=== PATIENT | female | born 1980 | race Caucasian/White ===

== ENCOUNTER 2016-04-05 06:47 | Day surgery (SDC) | payer MEDICAID ==
[2016-04-03 13:02] LABS: BASOPHILS 0.6 % (0.0-2.0); HEMATOCRIT 45.1 % (36.0-48.0); HEMOGLOBIN 15.4 g/dL (12-16); IMMATURE GRANULOCYTES 0.1 % (0-5); LYMPHOCYTES 32.4 % (15-50); MCH 28.9 pg (26.0-34.0); MCHC 34.1 g/dL (31.0-37.0); MCV 84.8 fL (80.0-100.0); MONOCYTES 6.7 % (2-11); NEUTROPHILS 58.2 % (40-80); PLATELET COUNT 296 10x3/uL (130-400); RBC 5.32 10x6/uL (4.00-5.40); RDW 12.5 % (11.5-14.5); WBC 8.2 10x3/uL (4.8-10.8)
[~2016-04-05] VITALS: Ht 160 cm; Wt 100.7 kg
[2016-04-05 07:09] VITALS: BP 137/80; Ht 160 cm; Wt 100.7 kg
[2016-04-05 07:23] LABS: HCG URINE NEGATIVE (NEGATIVE)
--- NOTE | 2016-04-05 15:18 | NUR ---
1150-IV DISCONTINUED, CATHETER INTACT, COTTON BALL AND BANDAID APPLIED. DISCHARGE INSTRUCTIONS GIVEN, ESCORTED VIA WHEELCHAIR TO PERSONAL CAR, LEFT WITH FAMILY DRIVING.
--- NOTE | 2016-04-17 14:40 | OP ---
PATIENT NAME: REANNA ZAMORA MEDICAL RECORD: [id number] :78 LOCATION:[facility] ADMISSION DATE: SURGEON: KHLOE JOYA MD DATE OF OPERATION: 04/05/2016 PREOPERATIVE DIAGNOSIS: Menorrhagia. POSTOPERATIVE DIAGNOSIS: Menorrhagia. PROCEDURE: Hysteroscopy and D&C. ANESTHESIA: General endotracheal. INTRAVENOUS FLUIDS: Per anesthesia record. SPECIMENS: Endometrial curettings. FINDINGS: 1. Grossly normal appearing proliferative endometrium. 2. Normal external genitalia and cervix. HYSTEROSCOPIC FLUID LOSS: Approximately 200 cc of 0.9 normal saline. COMPLICATIONS: None apparent. PROCEDURE: The patient was taken to the operating room where a general anesthesia was achieved without difficulty. The patient was then prepped and draped in normal sterile fashion in the dorsal lithotomy position in the [facility]. SCDs were on and functioning normally. At this point, the bladder was drained to approximately 30 cc of clear yellow urine and a Graves speculum placed into the vagina. The anterior lip of the cervix was grasped with a single tooth tenaculum. The patient was sounded to approximately 9 cm. A minimal dilation was performed for approximately 4-5 mm and the small hysteroscope was then placed into the uterus and findings were as mentioned. Following removal of the scope, curettage was performed in all quadrants of the uterus with minimal bleeding noted. The specimen was sent to pathology. The tenaculum and speculum were then removed. The patient tolerated the procedure well and was transferred to postanesthesia recovery stable without incident. TRANSINT:[id number] Voice Confirmation ID: [id number] DOCUMENT ID: [id number] KHLOE JOYA MD at 1437 CC: [id number] DICTATION DATE: 04/14/16 0720 POLE INCISOR OPERATOR: 04/14/16 0930 [facility] 04/05/16 [place] [id number]
== END 2016-04-05 11:50 | disposition home or self-care (01) ==
LOC: D.OPS 06:47 → D.PAN 09:30 → D.OPS 09:30
PROVIDERS: Obstetrics & Gynecology
DX: N91.2 Amenorrhea, unspecified (principal); K21.9 Gastro-esophageal reflux disease without esophagitis

== ENCOUNTER → 2016-04-30 17:08 | Outpatient (CLI) | payer MEDICAID ==
[2016-04-05 07:09] VITALS: BMI 39.4
[~2016-04-30 17:08] MED LIST: HYDROCODONE-APA1 TAB PO; IBUPROFEN600 MG PO
== END | disposition home or self-care (01) ==
LOC: D.MAMMO 14:00
DX: R92.8 Other abnormal and inconclusive findings on diagnostic imaging of breast (principal)

== ENCOUNTER 2016-05-31 05:42 | Inpatient (IN) | payer MEDICAID ==
[2016-05-29 11:06] LABS: BASOPHILS 0.6 % (0.0-2.0); EOSINOPHILS 3.3 % (0-7); HEMATOCRIT 41.1 % (36.0-48.0); HEMOGLOBIN 13.3 g/dL (12-16); LYMPHOCYTES 37.4 % (15-50); MCH 28.2 pg (26.0-34.0); MCHC 32.4 g/dL (31.0-37.0); MCV 87.3 fL (80.0-100.0); MEAN PLATELET VOLUME 10.1 fL (7.4-10.4); MONOCYTES 7.2 % (2-11); NEUTROPHILS 51.5 % (40-80); PLATELET COUNT 275 10x3/uL (130-400); RBC 4.71 10x6/uL (4.00-5.40); RDW 12.7 % (11.5-14.5); WBC 6.6 10x3/uL (4.8-10.8)
[2016-05-29 11:18] LABS: CALC OSMOLALITY 276 mosm/kg (275-300); CALCIUM 8.9 mg/dL (8.5-10.1); CHLORIDE - SERUM 103 mmol/L (98-107); CREATININE - SERUM 0.7 mg/dL (0.6-1.3); GLUCOSE 106 mg/dL (74-106); POTASSIUM - SERUM 4.2 mmol/L (3.5-5.1); SODIUM 139 mmol/L (136-145); UREA NITROGEN 10 mg/dL (7-18); eGFR NON AFRICAN AMERICAN > 90 mL/min (90-120)
[2016-05-31] VITALS (15 sets, daily range): BP systolic 132–161; BP diastolic 67–92; Ht 160 cm; Wt 102.3 kg
[~2016-05-31] VITALS: Ht 160 cm; Wt 102.3 kg
[2016-05-31 06:32] LABS: HCG URINE NEGATIVE (NEGATIVE)
--- NOTE | 2016-05-31 11:45 | NUR ---
PATIENT RECEIVED TO ROOM 1218. SHE IS AWAKE AND ALERT, RATING HER ABDOMINAL PAIN A 6 ON THE SCALE. IVF AND STAVE LOG RIPSAW OPERATOR INITIATED TO THE LEFT WRIST INSERTION SITE. THE SITE IS WITHOUT REDNESS OR SWELLING. SCDS ARE ON AND PPUMPING. MATHIS CATHETER HAD 100CC OF CLEAR, LIGHT GREEN URINE TO THE UROMETER, EMPTIED TO THE COLLECTION BAG. NO VAGINAL BLEEDING NOTED. DISCUSSED THE EXPECTED PLAN OF CARE. SHE REQUESTED ICE CHIPS. PROVIDED. MOTHER AND FIANCEE AT THE BEDISDE WHEN I LEFT.
--- NOTE | 2016-05-31 11:54 | NUR ---
PATIENT IS WITHOUT QUESTIONS SHE IS MORE RELAXED. IVF INFUSING AND DIRECTOR PRODUCT DEVELOPMENT IN USE.
--- NOTE | 2016-05-31 13:08 | NUR ---
patient is awake and alert, states that her pain is a 5. 370cc emptied into the collection bag. structural shop helper in use. tachycardia noted, monitoring. bladder had to be drained manually of 250cc urine. scd's are on and working.
--- NOTE | 2016-05-31 15:01 | NUR ---
Visiting with patient, happy with care. Assisted with repositing. Request pillow and blanket for mother staying the night.
--- NOTE | 2016-05-31 15:09 | NUR ---
ASSISTED IN TURNING PT TO HER R SIDE, PILLOW PUT BEHIND HER. SONAL PAD PLACE BECAUSE PT STATES SHE FEELS WET IN PERINEAL AREA. I DID NOT VISUALIZE ANY DISCHARGE. STATES HER PAIN IS ABOUT A 6/10. BED IS LOW, SIDE RAILS UP X 2 AND CALL LIGHT IN REACH. ALSO GOT HER SOME FRESH ICE WATER. PT USED INCENTIVE SPIROMETRY.
--- NOTE | 2016-05-31 15:45 | NUR ---
DR AGRAWAL AND HIS TECHNICAL CLERK JAKOB WORRELL HERE TO SEE PT. NEW ORDERS REVIEWED. PT IS BEING DISCHARGED.
[2016-05-31 16:27] LABS: CALC OSMOLALITY 271 mosm/kg (275-300); CALCIUM 8.3 mg/dL (8.5-10.1); CHLORIDE - SERUM 99 mmol/L (98-107); CREATININE - SERUM 0.6 mg/dL (0.6-1.3); GLUCOSE 172 mg/dL (74-106); POTASSIUM - SERUM 4.1 mmol/L (3.5-5.1); SODIUM 135 mmol/L (136-145); UREA NITROGEN 6 mg/dL (7-18); eGFR NON AFRICAN AMERICAN > 90 mL/min (90-120)
[2016-05-31 16:36] LABS: BASOPHILS 0.1 % (0.0-2.0); EOSINOPHILS 0 % (0-7); HEMATOCRIT 38.4 % (36.0-48.0); HEMOGLOBIN 12.7 g/dL (12-16); IMMATURE GRANULOCYTES 0.2 % (0-5); LYMPHOCYTES 2.5 % (15-50); MCH 28.2 pg (26.0-34.0); MCHC 33.1 g/dL (31.0-37.0); MCV 85.3 fL (80.0-100.0); MEAN PLATELET VOLUME 10.3 fL (7.4-10.4); MONOCYTES 2.3 % (2-11); NEUTROPHILS 94.9 % (40-80); PLATELET COUNT 247 10x3/uL (130-400); RDW 12.6 % (11.5-14.5); WBC 17.5 10x3/uL (4.8-10.8)
--- NOTE | 2016-05-31 16:43 | NUR ---
PT IS AWAKE LYING IN BED. MOTHER AT BEDSIDE. IV PATENT LEFT WRIST. LR INFUSING AT 125 CC. DILAUDID VICE [employer] POLICE OFFICER INTACT 0.2 Q 10 MIN WITH 4 MG LOCKOUT. MATHIS INTACT WITH 350 CC LIGHT GREEN URINE. BED IS LOW, SIDE RAILS UP X2 AND CALL LIGHT IN REACH.
--- NOTE | 2016-05-31 17:45 | NUR ---
PT STATES THAT SHE IS NAUSEATED. ZOFRAN 4 MG GIVEN IV.
--- NOTE | 2016-05-31 17:50 | NUR ---
pt c/o nausea. zofran 4 mg given iv.
--- NOTE | 2016-05-31 18:33 | NUR ---
PT IS FEELING BETTER. TRYING TO EAT CLEAR LIQUIDS. BED IS LOW. SIDE RAILS UP X 2 AND CALL LIGHT IN REACH. IV PATENT L WRIST. MATHIS INTACT. NO BLEEDING NOTED. INCISION CLEAN DRY AND INTACT WITH PRIMAPORE DRESSING. SCD'S INTACT.
--- NOTE | 2016-05-31 19:35 | NUR ---
ASSESSMENT PER FLOW SHEET, VS OBTAINED, IV IN LEFT WRIST INTACT WITH NO REDNESS OR EDEMA INFUSING VIA PUMP LR AT 125 ML/HR, DILAUDID LOCAL COMPANY TRUCK DRIVER TO DELIVER 0.2MG/10MINS PER PT'S DEMAND FOR PAIN CONTROL, PT REPORTS PAIN HAS BEEN 5/10 ALL DAY, BUT IT IS A 4/10 AT THIS TIME, PT INST ON AND VERBALIZES UNDERSTANDING OF LOCAL COMPANY TRUCK DRIVER, [employer] WITH PRIMAPORE DRESSING, DRIED DRAINAGE NOTED AND OUTLINED, FRESH ICE PACK TO ABD, SMALL PILLOW PROVIDED, MATHIS CATH INTACT DRAINING DARK YELLOW URINE, PT ENC TO DRINK PLENTY OF FLUIDS, REQUESTED AND SERVED LEMON ORUTSARARMIUT SODA, PT DENIES FLATUS, PT INST ON AND DEMONSTRATED INCENTIVE SPIROMETER, SCD'S ON AND WORKING PROPERLY, PT DENIES FURTHER NEEDS, PTS MOM AT BEDSIDE, DINNER TRAY AND TRASH REMOVED
--- NOTE | 2016-05-31 20:24 | NUR ---
PT VISITING WITH MOM, REQUESTED AND SERVED BATOOL, DENIES FURTHER NEEDS
--- NOTE | 2016-05-31 21:18 | NUR ---
PT VISITING WITH FAMILY AND FRIENDS, DENIES NEEDS AT THIS TIME
--- NOTE | 2016-05-31 22:30 | NUR ---
PT AWAKE, LOOKING AT PHONE, REQUESTED AND SERVED FRESH H20, DENIES FURTHER NEEDS, PTS MOM AT BEDSIDE
[2016-06-01 00:15] VITALS: BP 132/75
--- NOTE | 2016-06-01 00:15 | NUR ---
PT RESTING WITH EYES CLOSED, AROUSES TO SOFT VERBAL STIMULATION, VS OBTAINED, MATHIS CATH EMPTIED, PT RATES INC PAIN 05/25, STATES "IT'S NOT BAD", PT REPORTS VOMITING A VERY SMALL AMOUNT, LESS THAN 25 CC'S NOTED IN EMESIS BAG, PT DENIES ANY NAUSEA AT THIS TIME, STATES "I THINK THE LEMON BURNS PAIUTE SODA AND JELLO WERE JUST TO SWEET", PT PROVIDED ANOTHER EMESIS BAG, PT DENIES FURTHER NEEDS, SCD'S CONTINUE AND WORKING PROPERLY, PTS MOM AT BEDSIDE
--- NOTE | 2016-06-01 01:41 | NUR ---
PT AWAKE, NEW BAG OF LR HUNG IV PER MD ORDERS, SEE EMAR, PT REQUESTED AND PROVIDED WASH CLOTH AND FRESH H20, PT DENIES FURTHER NEEDS, PTS MOM ASLEEP IN RECLINER
--- NOTE | 2016-06-01 02:39 | NUR ---
PT AWAKE, NEW VIAL OF DILAUDID TO TOOL TROUBLE SHOOTER PUMP, PT DENIES NEEDS AT THIS TIME, PTS MOM ASLEEP IN RECLINER
[2016-06-01 04:22] VITALS: BP 132/64
--- NOTE | 2016-06-01 04:22 | NUR ---
PT AWAKE, VS OBTAINED, I&O'S COLLECTED, SONAL CARE DONE WITH WET WARM WASH CLOTH, NO VAG BLEEDING NOTED, FRESH ICE PACK TO ABD, PT RATES INC PAIN 3-4/10, PT REQEUSTED AND SERVED FRESH H20 AND A MARTINEZ POPSICLE, SCD'S CONTINUE ON AND WORKING PROPERLY, PT DENIES FURTHER NEEDS, PTS MOM ASLEEP IN RECLINER
--- NOTE | 2016-06-01 05:45 | NUR ---
PT AWAKE, WATCING [employer] ON PHONE, DENIES NEEDS AT THIS TIME, PTS MOM ASLEEP IN RECLINER
[2016-06-01 06:34] LABS: BASOPHILS 0.1 % (0.0-2.0); EOSINOPHILS 0 % (0-7); HEMATOCRIT 34.3 % (36.0-48.0); HEMOGLOBIN 11.6 g/dL (12-16); IMMATURE GRANULOCYTES 0.1 % (0-5); LYMPHOCYTES 7.8 % (15-50); MCH 28.6 pg (26.0-34.0); MCHC 33.8 g/dL (31.0-37.0); MCV 84.5 fL (80.0-100.0); MEAN PLATELET VOLUME 9.9 fL (7.4-10.4); MONOCYTES 7.6 % (2-11); NEUTROPHILS 84.4 % (40-80); PLATELET COUNT 241 10x3/uL (130-400); RBC 4.06 10x6/uL (4.00-5.40); RDW 12.6 % (11.5-14.5); WBC 14.3 10x3/uL (4.8-10.8)
[2016-06-01 06:49] LABS: CALC OSMOLALITY 270 mosm/kg (275-300); CALCIUM 8.6 mg/dL (8.5-10.1); CARBON DIOXIDE 28.2 mmol/L (21.0-32.0); CHLORIDE - SERUM 101 mmol/L (98-107); CREATININE - SERUM 0.6 mg/dL (0.6-1.3); GLUCOSE 139 mg/dL (74-106); POTASSIUM - SERUM 3.6 mmol/L (3.5-5.1); SODIUM 136 mmol/L (136-145); eGFR NON AFRICAN AMERICAN > 90 mL/min (90-120)
[2016-06-01 06:55] LABS: UREA NITROGEN 4 mg/dL (7-18)
--- NOTE | 2016-06-01 07:00 | NUR ---
SHIFT REPORT TO FRITZ BANSAL RN
--- NOTE | 2016-06-01 07:30 | NUR ---
ZARIA RESTING IN HER BED, HOB UP 45 DEGREES. SHE IS WATCHING TV ON HER CELL PHONE. FRESH WATER GIVEN IN HER MUG. SHE DENIES OTHER NEEDS AT THIS TIME. CALL LIGHT IS WITHIN HER REACH. HER MOTHER IS RESTING IN THE BEDSIDE CHAIR ASLEEP.
[2016-06-01 08:00] VITALS: BP 154/83
--- NOTE | 2016-06-01 08:30 | NUR ---
PATIENT IS RESTING IN HER BED, HOB UP 45 DEGREES. SHE IS ANXIOUS TO HAVE HER MATHIS CATHETER OUT. SALINE LOCKED HER IV AFTER GIVING TORADOL FOR UNRELIEVED ABDOMINAL/BACK PAIN THAT SHE IS RATING A 5. ALSO GAVE HER AN ORAL NORCO, DC'D THE GRADES 6 THROUGH 8 TEACHER. EXPLAINED THAT SHE WILL NEED TO CONTINUE WEARING THE SCD'S UNTIL SHE IS FULLY AMBULATORY AND WOULD THEN NEED TO WEAR THEM AT NIGHT. HER MATHIS CATHETER WAS PATENT. 450CC OF YELLOW/GREEN URINE TO THE BEDSIDE COLLECTION BAG WASTED. VSS. POC FOR THE DAY DISCUSSED. SHE UNDERSTANDS THAT SHE IS TO CALL FOR ASSISTANCE TO GET OOB ESPECIALLY HE FIRST TIME IN CASE SHE BECOMES DIZZY. CALL LIGHT IS WITHIN HER REACH. SHE STATE SHTAT SHE SLEPT VERY LITTLE LAST NIGHT, ONLY DOZING FOR AN HOUR OR SO AT A TIME. FRESH ICE WATER GIVEN. SHE DENIES OTHER NEEDS AT THIS POINT. MONITORING.
--- NOTE | 2016-06-01 09:10 | NUR ---
PATIENT WAS RESTING QUIELTY WITH EYES CLOSED I ENTER, STATE SHTAT THE MEDICATIONS HELPED HER PAIN SOMEWHAT. APPEARS RELAXED AND PREPARED TO RETURN TO SLEEP. CALL LIGHT IS WITHIN HER REACH. NO NEEDS NOTED.
--- NOTE | 2016-06-01 11:25 | NUR ---
PATIENT RESTING QUIETLY WITH EYES CLOSED. CALL LIGHT IS WITHIN HER REACH.
--- NOTE | 2016-06-01 12:40 | NUR ---
PATIENT UP TO THE RESTROOM, VOIDED 300CC OF GREEN/YELLOW URINE. SHE WAS SLOW BUT STEADY, DENIED DIZZINESS. NO VAGINAL BLEEDING. SCD'S REPLACED. SHE IS INTERESTED IN TAKING A SHOWER. AWAITING MOTHER'S RETURN. SHE HAS EATEN 1/2 OF HER REGULAR MEAL AND DENIES NAUSEA.
--- NOTE | 2016-06-01 12:43 | NUR ---
PATIENT C/O ACID REFLUX, HEADACHE. NEW ORDERS RECEIVED FOR HOME (OVER THE COUNTER) MEDICATION FOR REFLUX. YENIFER GERMAN. INSTRUCTED HER TO CALL FOR ANY NEEDED ASSISTANCE. CALL LIGHT IS WITHIN HER REACH.
[2016-06-01 13:00] VITALS: BP 138/74
--- NOTE | 2016-06-01 13:46 | NUR ---
PATIENT RESTING WITH EYES CLOSED I ENTER. SHE DENIES NEEDS, ASKS THAT I FRAME FEEDER THE LIGHTS. ENCOURAGED HER TO CALL WITH ANY NEEDS.
--- NOTE | 2016-06-01 15:00 | NUR ---
REPORTED TO PATIENT THAT THIS UNIT WILL BE CLOSING AND SHE WILL BE MOVED TO A ROOM ON LABOR AND DELIVERY. SHE IS UNDERSTANDING AND AGREEABLE. DENIES NEEDS.
--- NOTE | 2016-06-01 16:40 | NUR ---
Received by renata from [place]. bedside report from Eleuterio Saavedra rn. Pt is walking without complaints, oriented to room and denies any needs at this time. Side rails up x 2 with phone and call light in reach.
--- NOTE | 2016-06-01 16:40 | NUR ---
PATIENT AMBULATED OVER TO ROOM 1278 WITHOUT COMPLAINT OF DIZZINESS, NAUSEA. SHE HAS VOIDED A SECOND TIME 700CC OF GREEN YELLOW URINE EMPTIED FROM THE COLLECTION HAT
--- NOTE | 2016-06-01 17:48 | NUR ---
Pt sitting up eating regular diet tray, rates pain at 4/10 and states that she is having a lot of cramping. Agreeable to taking motrin that is ordered, see emar. NO other needs at this time. Family at bedside.
--- NOTE | 2016-06-01 18:57 | NUR ---
report to 7p-7a
--- NOTE | 2016-06-01 19:45 | NUR ---
TUMS TABS 2 GIVEN TO PT. PER HER REQUEST. ASSESSMENT COMPLETED. BREATH SOUNDS CLEAR AND BOWEL SOUNDS ACTIVE. PT. REPORTS BOWEL MOVEMENT AND THAT SHE IS ALSO PASSING GAS. SALINE LOCK NOTED IN LT WRIST. NO REDNESS NOR EDEMA NOTED AT SITE. PT. STATED THAT SHE NOTED SCANT AMT. VAG. BLEEDING WHEN HAVE BOWEL MOVMENT. LOWER ABD. INCISION NOTED WITH ELOY WHEN IS CLEAN AND DRY. DISCUSSED WITH PT. WOUND CARE AT HOME. PT. REPORTS THAT SHE HAS HAD 2 PREVIOUS AND SHE ALSO CARED FOR THOSE WOUNDS. DENIES ANY PAIN IN LOWER EXTREMITIES. PT. STATES SHE JUST RETURNED TO BED AFTER GOING TO THE BATHROOM AND SHE RATES HER PAIN A 5 OF 10 ON PAIN SCALE. SMALL BRUISE NOTED ON ABD. IN CLOSE PROXIMITY TO INCISION. PT. CHEERFUL. MALE LYING ON SOFA.
[2016-06-01 19:47] VITALS: BP 123/68
--- NOTE | 2016-06-01 19:55 | NUR ---
HAROLDO SERVED PER PT. REQUEST. ENCOURGED PT. TO WALK IN HALLWAY BEFORE LYING DOWN FOR THE NIGHT. PT. STATED VERBAL UNDERSTANDING.
--- NOTE | 2016-06-01 20:38 | NUR ---
PT REQUEST PAIN MEDICATION FOR ABD AND INCISIONAL PAIN. STATES PAIN "COMES AND GOES." DESCRIBES PAIN THROBBING AND BURNING. RATES PAIN 4/10 AT THIS TIME. NORCO GIVEN PER ORDERS. DENIES ADDITIONAL NEEDS AT THIS TIME. BED IN LOW POSITION WITH UPPER SIDE RAILS RAISED X2. CL/PHONE WITHIN REACH.
--- NOTE | 2016-06-01 21:14 | NUR ---
LYING ON RT SIDE WITH EYES CLOSED. RESPIRATIONS REGULAR. MALE ENTERING ROOM STATES SHE HAS BEEN ASLEEP "FOR A LITTLE WHILE".
--- NOTE | 2016-06-01 22:26 | NUR ---
LYING IN RT TILT PLAYING GAME ON CELL PHONE. DENIES ANY NEEDS.
--- NOTE | 2016-06-01 22:33 | NUR ---
SALINE LOCK FLUSHED WITH NORMAL SALINE. PT. CONTINUES TO LOOK AT PHONE. LIGHTS IN ROOM DIMMED. OFFERED ADDTIONAL NOURISHMENT BUT PT. DECLINES. STATES SHE HAS BEEN UP TO BATHROOM BUT HAS NOT PASSED ANY MORE GAS. MALE IN ROOM WITH PT.
--- NOTE | 2016-06-01 23:42 | NUR ---
LYING IN RT LATERAL TILT. EYES CLOSED AND RESPIRATIONS REGULAR. DOES NOT AWAKEN TO DOOR OPENED BY THIS NURSE.
--- NOTE | 2016-06-02 00:34 | NUR ---
PT. CALLED REQUESTING PAIN MED.
[2016-06-02 00:35] VITALS: BP 130/60
--- NOTE | 2016-06-02 00:36 | NUR ---
PAIN MED GIVEN REQUESTED. RATES PAIN 5 OF 10 AND STATES IS HER ABD AND HEAD. ICE WATER PROVIDED.
--- NOTE | 2016-06-02 01:20 | NUR ---
LYING ON RT SIDE WITH EYES CLOSED. RESPIRATIONS REGULAR.
--- NOTE | 2016-06-02 03:43 | NUR ---
LYING ON BACK WITH EYES CLOSED. RESPIRATIONS REGULAR. PT. AROUSES TO OPENING OF ROOM DOOR AND STATES "I AM FINE".
--- NOTE | 2016-06-02 05:04 | NUR ---
PT. REGUESTING PAIN PILL AND MOTRIN AND TUMS. SAME GIVEN. C/O NECK AND ABD. DISCOMFORT. LYING IN RT TILT WITH HOB AT 30 DEGREES.
--- NOTE | 2016-06-02 05:42 | NUR ---
PT. LYING IN RT TILT. RATES PAIN A 3 OF 10. REPORTS " I FEEL MUCH BETTER".
--- NOTE | 2016-06-02 07:21 | NUR ---
ASSUME CARE OF THIS PATIENT. CURRENTLY SLEEPING, RESPIRATIONS EVEN. WILL COMPLETE SHIFT ASSESSMENT WHEN AWAKE.
--- NOTE | 2016-06-02 08:11 | NUR ---
SITTING UP IN BED EATING BREAKFAST. DENIES NEEDING ANYTHING AT THIS TIME. SIDE RAILS UP X 2, CALL LIGHT IN REACH.
[2016-06-02 08:52] VITALS: BP 136/75
--- NOTE | 2016-06-02 09:08 | NUR ---
SHIFT ASSESSMENT COMPLETED. SITTING UP IN BED. REQUESTED PAIN MEDICATION FOR 4/10 HEADACHE AND INCISIONAL PAIN. NORCO 10 MG GIVEN PO FOR RELIEF. ALSO REQUESTED TUMS FOR HEARTBURN. 2- 500 MG TABLETS GIVEN. DC INSTRUCTIONS GIVEN TO INCLUDE S&S INFECTION, WOUND CARE, MEDICATIONS AND MEDICATION ADMINISTRATION AND FOLLOW-UP. PLANS SHOWER WHEN PAIN MEDICATION EFFECTIVE AND DC HOME WHEN PATIENT IS READY. SIDE RAILS UP X 2, CALL LIGHT IN REACH. VISITOR SLEEPIN ON COUCH. SALINE LOCK DC'D.
--- NOTE | 2016-06-02 10:14 | NUR ---
NO REQUESTS OTHER THAN TO REST LONGER PRIOR TO DC. LIGHTS TURNED OFF PER PATIENT REQUEST. SIDERAILS UP X 2, CALL LIGHT IN REACH. VISITOR SLEEPING ON COUCH.
[2016-06-02] MEDS ORDERED: HYDROCODONE-APA1 TAB PO (13:09)
[2016-06-02] MEDS ORDERED: IBUPROFEN600 MG PO (13:11)
--- NOTE | 2016-06-02 13:15 | NUR ---
REQUESTED PAIN MEDICATION PRIOR TO DC FOR 4/10 INCISIONAL PAIN. NORCO 10 MG GIVEN PO FOR RELIEF. DC INSTRUCTIONS COMPLETED PROVIDING BOTH VERBAL AND WRITTEN INFORMATION. VERBALIZED UNDERSTANDING. NO QUESTIONS AT THIS TIME.
--- NOTE | 2016-06-02 13:30 | NUR ---
DC'D VIA WHEELCHAIR TO CAR. REMOVED ALL BELONGINGS FROM ROOM. HAS PRESCRIPTIONS X 2 AND WRITTEN INSTRUCTIONS.
== END 2016-06-02 13:30 | disposition home or self-care (01) | DRG 743 ==
LOC: D.WS 05:42 → D.SDCHOLD 05:42 → D.WS 10:38 → D.LD 06-01 16:46
PROVIDERS: ADMIT Obstetrics & Gynecology
PROC: 0UTC0ZZ Resection of Cervix, Open Approach (ICD-10-PCS; 2016-05-31)
PROC: 0UT90ZZ Resection of Uterus, Open Approach (ICD-10-PCS; principal; 2016-05-31 07:30)
DX: N85.02 Endometrial intraepithelial neoplasia [EIN] (principal); N73.6 Female pelvic peritoneal adhesions (postinfective); G43.909 Migraine, unspecified, not intractable, without status migrainosus; Z87.891 Personal history of nicotine dependence

== ENCOUNTER 2018-02-16 20:22 | Emergency (ER) | payer MEDICAID ==
[~2018-02-16] VITALS: Ht 160 cm; Wt 90.9 kg
[2018-02-16 20:45] VITALS: Ht 160 cm; Wt 90.9 kg
[2018-02-16] MEDS ORDERED: AUGMENTIN 875-11 TAB PO (23:05)
[2018-02-16 23:19] VITALS: BP 137/75
== END 2018-02-16 23:20 | disposition home or self-care (01) ==
LOC: D.ER 20:22
DX: H66.91 Otitis media, unspecified, right ear (principal); J02.9 Acute pharyngitis, unspecified; H92.01 Otalgia, right ear